=== PATIENT | male | born 1935 | race Two or more races ===

== ENCOUNTER 2025-01-07 10:30 | Emergency (ER) | payer OTHER ==
[~2025-01-07] VITALS: Ht 170.2 cm; Wt 75.0 kg
[2025-01-07 10:39] VITALS: TEMP 98.2
[2025-01-07] MEDS ORDERED: SACU1TAB PO (10:50)
[2025-01-07] MEDS ORDERED: DAPA5TAB PO (10:50)
[2025-01-07] MEDS ORDERED: TAMS0.4C94 PO (10:50)
[2025-01-07] MEDS ORDERED: CARV3 PO (10:50)
[2025-01-07] MEDS ORDERED: LOSA-381 PO (10:50)
[2025-01-07] MEDS: DEXTRAN 70 0.1%/HYPROMELL 0.3% 0.9 ML OPHTHALMIC SOLUTION [PF] OS ONE (12:30)
[2025-01-07 12:45] VITALS: BP 145/63; PULSE 70; RESP 16; O2SAT 97
== END 2025-01-07 12:57 | disposition home or self-care (01) ==
LOC: EMS 10:30
DX: H11.32 Conjunctival hemorrhage, left eye (principal); E78.00 Pure hypercholesterolemia, unspecified; Z79.82 Long term (current) use of aspirin; Z79.899 Other long term (current) drug therapy; Z98.890 Other specified postprocedural states
CPT/HCPCS: 99282; Z7502; Z7610